=== PATIENT | female | born 1945 | race Caucasian/White ===

== ENCOUNTER → 2024-01-31 08:34 | Outpatient (REF) | payer MEDICARE, BC, SELFPAY ==
[2024-01-31 10:25] LABS: ALT (SGPT) 17 U/L (0-35); AST (SGOT) 26 U/L (14-36); Albumin 3.9 g/dl (3.5-5.0); Alkaline Phosphatase 95 U/L (38-126); Blood Urea Nitrogen 17 mg/dl (7-17); Calcium 9.4 mg/dl (8.4-10.2); Carbon Dioxide 27 mmol/L (22-30); Chloride 106 mmol/L (98-107); Glucose 101 mg/dl (70-99); HDL Cholesterol 55 mg/dl; LDL Cholesterol, Calculated 69 mg/dl; Potassium 3.9 mmol/L (3.5-5.1); Sodium 142 mmol/L (135-145); Total Bilirubin 0.5 mg/dl (0.2-1.3); Total Cholesterol 146 mg/dl (50-199); Total Protein 6.4 g/dl (6.3-8.2); Triglyceride 111 mg/dl (10-149); Very Low Density Lipoprotein 22 mg/dl (0-30); eGFR > 60.00
[2024-01-31 10:55] LABS: TSH Reflex To Free T4 0.94 uIU/ml (0.47-4.68)
[2024-02-01 09:54] LABS: Glycohemoglobin (HgbA1c) 5.9 % (4.0-5.6)
== END ==
LOC: REG 08:34
PROVIDERS: ATTENDING PHYSICIAN Internal Medicine
DX: I10 Essential (primary) hypertension (principal); E03.9 Hypothyroidism, unspecified; E78.5 Hyperlipidemia, unspecified; R26.2 Difficulty in walking, not elsewhere classified; M48.07 Spinal stenosis, lumbosacral region; E11.9 Type 2 diabetes mellitus without complications; R26.9 Unspecified abnormalities of gait and mobility; G62.9 Polyneuropathy, unspecified
CPT/HCPCS: 36415; 80053; 80061; 83036; 84443

== ENCOUNTER → 2024-11-22 11:44 | Outpatient (REF) | payer MEDICARE, BC, SELFPAY ==
[2024-11-22 13:26] LABS: Glycohemoglobin (HgbA1c) 6.1 % (4.0-5.6)
[2024-11-22 13:44] LABS: ALT (SGPT) 14 U/L (0-35); AST (SGOT) 19 U/L (14-36); Albumin 4.5 g/dl (3.5-5.0); Alkaline Phosphatase 101 U/L (38-126); Blood Urea Nitrogen 24 mg/dl (7-17); Calcium 9.6 mg/dl (8.4-10.2); Carbon Dioxide 23 mmol/L (22-30); Chloride 105 mmol/L (98-107); Glucose 104 mg/dl (70-99); HDL Cholesterol 60 mg/dl; LDL Cholesterol, Calculated 95 mg/dl; Potassium 4.2 mmol/L (3.5-5.1); Sodium 140 mmol/L (135-145); Total Bilirubin 0.6 mg/dl (0.2-1.3); Total Cholesterol 180 mg/dl (50-199); Total Protein 6.7 g/dl (6.3-8.2); Triglyceride 127 mg/dl (10-149); Very Low Density Lipoprotein 25 mg/dl (0-30); eGFR > 60.00
[2024-11-22 14:03] LABS: TSH Reflex To Free T4 2.44 uIU/ml (0.47-4.68)
[2024-11-22 14:12] LABS: Microalbumin, Random Urine <0.6 mg/dl (0.6-1.7)
== END ==
LOC: REG 11:44
PROVIDERS: ATTENDING PHYSICIAN Internal Medicine
DX: I10 Essential (primary) hypertension (principal); E03.9 Hypothyroidism, unspecified; E78.5 Hyperlipidemia, unspecified; E11.9 Type 2 diabetes mellitus without complications
CPT/HCPCS: 36415; 80053; 80061; 82043; 82570; 83036; 84443

== ENCOUNTER → 2025-05-20 13:55 | Outpatient (REF) | payer MEDICARE, BC, SELFPAY | LOC: RAD 13:55 | PROVIDERS: ATTENDING PHYSICIAN Family Medicine | DX: G89.29 Other chronic pain (principal) | CPT/HCPCS: 72100 ==

== ENCOUNTER 2025-06-22 07:12 | Outpatient (RCR) | payer MEDICARE, BC, SELFPAY | END 2025-06-22 23:59 | disposition home or self-care (01) | LOC: RPT 07:12 | PROVIDERS: ATTENDING PHYSICIAN Family Medicine | DX: M54.42 Lumbago with sciatica, left side (principal); Z73.6 Limitation of activities due to disability; R26.2 Difficulty in walking, not elsewhere classified; R26.89 Other abnormalities of gait and mobility; G89.29 Other chronic pain | CPT/HCPCS: 97110; 97162 ==

== ENCOUNTER 2025-07-12 07:18 | Outpatient (RCR) | payer MEDICARE, BC, SELFPAY | END 2025-07-12 23:59 | disposition home or self-care (01) | LOC: RPT 07:18 | PROVIDERS: ATTENDING PHYSICIAN Family Medicine | DX: M54.42 Lumbago with sciatica, left side (principal); Z73.6 Limitation of activities due to disability; R26.2 Difficulty in walking, not elsewhere classified; R26.89 Other abnormalities of gait and mobility; G89.29 Other chronic pain; G62.9 Polyneuropathy, unspecified | CPT/HCPCS: 97110 ==

== ENCOUNTER → 2025-07-30 10:12 | Outpatient (REF) | payer MEDICARE, BC, SELFPAY ==
[2025-07-30 11:03] LABS: Hematocrit 37.2 % (37.0-47.0); Hemoglobin 12.2 g/dL (12.0-16.0); Mean Corp Hgb Conc. 32.8 g/dL (33.0-37.0); Mean Corpuscular Volume 83.0 fL (81.0-99.0); Nucleated Red Blood Cells % 0 %; Platelet Count 232 10^3/uL (130-400); Red Cell Dist. Width 14.5 % (11.5-14.5)
[2025-07-30 11:56] LABS: ALT (SGPT) 16 U/L (0-35); AST (SGOT) 23 U/L (14-36); Albumin 4.2 g/dl (3.5-5.0); Alkaline Phosphatase 86 U/L (38-126); Blood Urea Nitrogen 26 mg/dl (7-17); Calcium 9.3 mg/dl (8.4-10.2); Carbon Dioxide 26 mmol/L (22-30); Chloride 104 mmol/L (98-107); Glucose 99 mg/dl (70-99); HDL Cholesterol 56 mg/dl; LDL Cholesterol, Calculated 87 mg/dl; Potassium 4.4 mmol/L (3.5-5.1); Sodium 138 mmol/L (135-145); Total Protein 6.8 g/dl (6.3-8.2); Very Low Density Lipoprotein 18 mg/dl (0-30); eGFR > 60.00
[2025-07-30 12:10] LABS: TSH 2.33 uIU/ml (0.47-4.68)
[2025-07-30 13:53] LABS: Glycohemoglobin (HgbA1c) 6.0 % (4.0-5.9)
== END ==
LOC: REG 10:12
PROVIDERS: ATTENDING PHYSICIAN Family Medicine
DX: R06.09 Other forms of dyspnea (principal); E78.2 Mixed hyperlipidemia; E03.9 Hypothyroidism, unspecified; E11.9 Type 2 diabetes mellitus without complications
CPT/HCPCS: 36415; 80053; 80061; 83036; 83880; 84439; 84443; 85025